=== PATIENT | female | born 1975 ===

== ENCOUNTER 2018-03-31 08:25 | Emergency (ER) | payer OTHER ==
[2018-03-31 08:34] VITALS: BP 124/62; PULSE 79; RESP 16; TEMP 98.3; O2SAT 100; BMI 21.6
[2018-03-31] MEDS ORDERED: Oxycodone/Acetaminophen 5/325 mg Tab PO STA (09:34)
--- NOTE | 2018-03-31 10:34 | ED PDOC ---
Lower Extremity Pain/Injury Time Seen by Provider: 03/31/18 09:20 Chief Complaint (Nursing): Lower Extremity Problem/Injury Chief Complaint (Provider): Lower Extremity Problem/Injury History Per: Patient History/Exam Limitations: no limitations Onset/Duration Of Symptoms: Days Current Symptoms Are (Timing): Still Present Additional Complaint(s): 42 y/o female presents to the ED for evaluation of left knee pain. 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 Patient reports she was seen at a different hospital at the time of the injury and had full images done and was diagnosed with a knee sprain. Patient was supposed to follow up with an clinical specialist vascular yesterday. However, patient did not go to the appointment because she could not find a ride. Patient reports pain continued today and did not worsen or improve. Patient denies additional fall or trauma to the knee, swelling, pain to the calf or foot, warmth or coldness to any part of leg, pain in hips, numbness and other palpitations. PMD: Non H Provider Past Medical History Reviewed: Historical Data, Nursing Documentation, Vital Signs Vital Signs: Last Vital Signs Temp 98.3 F 03/31/18 08:33 Pulse 79 03/31/18 08:33 Resp 16 03/31/18 08:33 BP 124/62 03/31/18 08:33 Pulse Ox 100 03/31/18 08:33 - Medical History PMH: No Chronic Diseases - Surgical History Surgical History: No Surg Hx - Family History Family History: States: Unknown Family Hx - Home Medications Home Medications: Ambulatory Orders Medication Instructions Recorded Acetaminophen with Codeine 1 each PO Q6 2 Days #8 tablet 03/31/18 [Tylenol with Codeine #3 Tablet] - Allergies Allergies/Adverse Reactions: Allergies Allergy/AdvReac Type Severity Reaction Status Date / Time No Known Allergies Allergy Verified 03/31/18 08:51 Review of Systems ROS Statement: Except As Marked, All Systems Reviewed And Found Negative Musculoskeletal: Positive for: Leg Pain (Left knee pain) Physical Exam - Reviewed Nursing Documentation Reviewed: Yes Vital Signs Reviewed: Yes - Physical Exam Appears: Positive for: No Acute Distress Head Exam: Positive for: ATRAUMATIC, NORMOCEPHALIC Skin: Positive for: Normal Color, Warm, Dry Eye Exam: Positive for: Normal appearance, EOMI, PERRL Neck: Positive for: Normal, Painless ROM Cardiovascular/Chest: Positive for: Regular Rate, Rhythm. Negative for: Murmur Respiratory: Positive for: Normal Breath Sounds. Negative for: Respiratory Distress Gastrointestinal/Abdominal: Positive for: Normal Exam, Soft. Negative for: Tenderness Back: Positive for: Normal Inspection. Negative for: L CVA Tenderness, R CVA Tenderness, Vertebral Tenderness Extremity: Positive for: Normal ROM, Tenderness (Tenderness to palpation over the medial and lateral aspect of the left knee.), Other (No laxity on lockman anterior or posterior draw test. Extremity exam is limited as patient is afraid it will cause pain. Patient is resistent to exam. ). Negative for: Deformity Neurologic/Psych: Positive for: Alert, Oriented. Negative for: Motor/Sensory Deficits - ECG O2 Sat by Pulse Oximetry: 100 (RA) Pulse Ox Interpretation: Normal Medical Decision Making Medical Decision Making: Time: 0935 A/P: Unlikely exacerbation or change in pain status. -- Patient reports pain is constant without new trauma or injury. -- Patient refusing further images at this point. Patient states imaging was already done -- Pain controlled -- Patient encouraged to follow up with specialist. -- Tylenol #3 for two days for pain. -- Return parameters discussed with patient. Floor Space Allocator [id number] used to communicate with patient. Scribe Attestation: Documented by Adam Grove acting as a scribe for Gillian Noyola MD. Provider Scribe Attestation: All medical record entries made by the Scribe were at my direction and personally dictated by me. I have reviewed the chart and agree that the record accurately reflects my personal performance of the history, physical exam, medical decision making, and the department course for this patient. I have also personally directed, reviewed, and agree with the discharge instructions and disposition. Disposition - Clinical Impression Clinical Impression: Knee injury - Disposition Disposition: Routine/Home Disposition Time: 09:35 Condition: STABLE Additional Instructions: Follow up with specialist. Return to the emergency department if you have swelling, worsened pain, the leg becomes cold or hot, or if you develop weakness or numbness. Continue to use the knee brace and crutches and do not put weight on the left leg. Prescriptions: Acetaminophen with Codeine [Tylenol with Codeine #3 Tablet] 1 each PO Q6 2 Days #8 tablet Forms: [employer] (Jordanian), [employer] (Telugu) Print Language: NIGERIAN
== END 2018-03-31 11:25 | disposition home or self-care (01) ==
LOC: H.ER 08:25
DX: S89.92XA Unspecified injury of left lower leg, initial encounter (principal); W01.0XXA Fall on same level from slipping, tripping and stumbling without subsequent striking against object, initial encounter